=== PATIENT | female | born 1980 | race African-American/Black ===

== ENCOUNTER 2021-02-24 23:01 | Emergency (ER) | payer MEDICAID ==
[~2021-02-24] VITALS: Ht 165.1 cm; Wt 118.0 kg
[2021-02-24] MEDS ORDERED: SODIUM CHLORIDE 0.9% 1,000 ML IV ONE (23:45)
[2021-02-24 23:58] LABS: BASOPHILS % 0.6 % (0.0-2.0); EOSINOPHILS % 1.3 % (0.0-5.0); HEMATOCRIT. 37.9 % (36.0-48.0); HEMOGLOBIN. 12.9 g/dL (12.0-16.0); LYMPHOCYTES % 48.4 % (20.0-50.0); MEAN CORPUSCULAR HEMOGLOBIN 29.8 pg (28.0-32.0); MEAN CORPUSCULAR VOLUME 87.4 fL (81.0-99.0); MEAN PLATELET VOLUME 7.9 fl (7.4-10.4); NEUTROPHILS % 45.7 % (40.0-76.0); PLATELET 282 x1000/uL (130-400); RED BLOOD CELL COUNT 4.33 mill/uL (4.2-5.4); RED CELL DISTRIBUTION WIDTH 16.8 % (11.6-14.6)
[2021-02-25 00:05] LABS: CHLORIDE 106 mEq/L (98-107)
[2021-02-25 00:08] LABS: PROTHROMBIN TIME 10.4 sec (9.6-11.0)
[2021-02-25 00:24] LABS: CLARITY URINE CLEAR (CLEAR); COLOR URINE YELLOW (YELLOW); KETONES URINE NEGATIVE (NEGATIVE); LEUKOCYTE ESTERASE URINE TRACE (NEGATIVE); NITRITE URINE NEGATIVE (NEGATIVE); OCCULT BLOOD URINE NEGATIVE (NEGATIVE); PROTEIN URINE NEGATIVE (NEGATIVE); SPECIFIC GRAVITY URINE 1.012 (1.005-1.030); UROBILINOGEN URINE 0.2 E.U./dL (0.2-1.0)
[2021-02-25 00:36] LABS: *BARBITURATES SCREEN URINE NEGATIVE (NEGATIVE); *BENZODIAZEPINES SCREEN URINE NEGATIVE (NEGATIVE)
[2021-02-25 00:37] LABS: *COCAINE SCREEN URINE NEGATIVE (NEGATIVE); CANNABINOID URINE SCREEN NEGATIVE (NEGATIVE); METHADONE URINE SCREEN NEGATIVE (NEGATIVE); OPIATES URINE SCREEN NEGATIVE (NEGATIVE); PHENCYCLIDINE URINE SCREEN NEGATIVE (NEGATIVE)
[2021-02-25 00:45] LABS: *AMPHETAMINES SCREEN URINE PRESUMTIVE POSITIVE (NEGATIVE)
[2021-02-25] MEDS ORDERED: ACETAMINOPHEN 325MG TABLET PO ONE (00:45)
[2021-02-25] MEDS ORDERED: PYR200 MT (01:11)
[2021-02-25] MEDS ORDERED: CEPH500T MT (01:11)
[2021-02-25 01:46] VITALS: BP 171/90
== END 2021-02-25 02:12 | disposition home or self-care (01) ==
LOC: ER 23:59
DX: R10.9 Unspecified abdominal pain (principal); R30.0 Dysuria; I10 Essential (primary) hypertension; F15.129 Other stimulant abuse with intoxication, unspecified; F31.9 Bipolar disorder, unspecified; E11.9 Type 2 diabetes mellitus without complications
CPT/HCPCS: 36415; 74176; 80053; 80305; 81003; 81025; 83690; 85025; 85610; 93005; 99285; J7030; J7040

== ENCOUNTER 2021-10-28 18:31 | Emergency (ER) | payer MEDICAID ==
[~2021-10-28] VITALS: Ht 175.3 cm; Wt 104.4 kg
[~2021-10-28 18:31] MED LIST: CEPH500T MT; PYR200 MT
[2021-10-28 18:39] VITALS: BP 184/93
[2021-10-28 20:02] LABS: BASOPHILS % 0.8 % (0.0-2.0); EOSINOPHILS % 0.7 % (0.0-5.0); HEMOGLOBIN. 13.1 g/dL (12.0-16.0); LYMPHOCYTES % 34.8 % (20.0-50.0); MEAN CORPUSCULAR HEMOGLOBIN 29.4 pg (28.0-32.0); MEAN CORPUSCULAR VOLUME 89.4 fL (81.0-99.0); MEAN PLATELET VOLUME 7.9 fl (7.4-10.4); MONOCYTES % 5.8 % (2.0-8.0); NEUTROPHILS % 57.9 % (40.0-76.0); PLATELET 327 x1000/uL (130-400); RED BLOOD CELL COUNT 4.47 mill/uL (4.2-5.4); RED CELL DISTRIBUTION WIDTH 15.1 % (11.6-14.6)
[2021-10-28 20:11] LABS: CHLORIDE 108 mEq/L (98-107)
[2021-10-28 20:53] LABS: CLARITY URINE CLEAR (CLEAR); COLOR URINE YELLOW (YELLOW); KETONES URINE NEGATIVE (NEGATIVE); LEUKOCYTE ESTERASE URINE TRACE (NEGATIVE); NITRITE URINE NEGATIVE (NEGATIVE); OCCULT BLOOD URINE 1+ (NEGATIVE); PH URINE 6.5 (4.5-8.0); PROTEIN URINE NEGATIVE (NEGATIVE); SPECIFIC GRAVITY URINE 1.017 (1.005-1.030)
[2021-10-28] MEDS ORDERED: NITR-87 MT (22:08)
[2021-10-28] MEDS ORDERED: KETOROLAC 15MG/ML VIAL IM ONE (22:15)
[2021-10-28] MEDS ORDERED: KETOROLAC 30MG/ML VIAL IM NR (22:30)
== END 2021-10-28 23:21 | disposition home or self-care (01) ==
LOC: ER 18:31
DX: N39.0 Urinary tract infection, site not specified (principal); M79.605 Pain in left leg; R07.89 Other chest pain; F31.9 Bipolar disorder, unspecified; I10 Essential (primary) hypertension
CPT/HCPCS: 36415; 71045; 80053; 81003; 81025; 83880; 84484; 85025; 85379; 93005; 93971; 96372; 99285; J1885

== ENCOUNTER 2021-11-05 21:53 | Emergency (ER) | payer MEDICAID ==
[~2021-11-05] VITALS: Ht 170.2 cm; Wt 97.0 kg
[~2021-11-05 21:53] MED LIST changes: +NITR-87 MT
[2021-11-05 22:30] VITALS: BP 165/91
[2021-11-05] MEDS ORDERED: MAGNESIUM/ALUMINUM HYDROXIDE/SIMETHICONE 30ML UDC PO ONE (23:00)
[2021-11-06] MEDS ORDERED: PROT20 MT (01:54)
== END 2021-11-06 02:33 | disposition left against medical advice (07) ==
LOC: ER 21:53
DX: R10.13 Epigastric pain (principal); R07.89 Other chest pain; I10 Essential (primary) hypertension; Z79.899 Other long term (current) drug therapy
CPT/HCPCS: 93005; 99283

== ENCOUNTER 2021-11-18 03:46 | Emergency (ER) | payer MEDICAID ==
[~2021-11-18] VITALS: Ht 167.6 cm; Wt 100.0 kg
[~2021-11-18 03:46] MED LIST changes: +PROT20 MT
[2021-11-18 03:51] VITALS: BP 149/83
[2021-11-18] MEDS ORDERED: ACETAMINOPHEN 325MG TABLET PO STA (04:25)
[2021-11-18] MEDS ORDERED: MAGNESIUM/ALUMINUM HYDROXIDE/SIMETHICONE 30ML UDC PO STA (04:25)
[2021-11-18 08:33] LABS: BASOPHILS % 0.7 % (0.0-2.0); EOSINOPHILS % 1.3 % (0.0-5.0); HEMATOCRIT. 40.8 % (36.0-48.0); HEMOGLOBIN. 13.4 g/dL (12.0-16.0); LYMPHOCYTES % 32.7 % (20.0-50.0); MEAN CORPUSCULAR VOLUME 88.3 fL (81.0-99.0); MEAN PLATELET VOLUME 8.1 fl (7.4-10.4); NEUTROPHILS % 58.3 % (40.0-76.0); PLATELET 331 x1000/uL (130-400); RED BLOOD CELL COUNT 4.62 mill/uL (4.2-5.4); RED CELL DISTRIBUTION WIDTH 14.8 % (11.6-14.6)
[2021-11-18 08:40] LABS: CHLORIDE 109 mEq/L (98-107)
== END 2021-11-18 11:09 | disposition left against medical advice (07) ==
LOC: ER 03:46
DX: R10.11 Right upper quadrant pain (principal); Z53.21 Procedure and treatment not carried out due to patient leaving prior to being seen by health care provider
CPT/HCPCS: 36415; 80053; 85025; 93005; 99284

== ENCOUNTER 2021-11-19 03:53 | Emergency (ER) | payer MEDICAID ==
[~2021-11-19] VITALS: Ht 167.6 cm; Wt 118.0 kg
[2021-11-19 04:00] VITALS: BP 194/113
== END 2021-11-19 06:48 | disposition home or self-care (01) ==
LOC: ER 04:27
DX: B34.9 Viral infection, unspecified (principal); Z20.822 Contact with and (suspected) exposure to COVID-19
CPT/HCPCS: 71045; 93005; 99285; C9803; U0003; U0005